=== PATIENT | female | born 1960 | race Caucasian/White ===

== ENCOUNTER 2017-07-07 08:21 | Emergency (ER) | payer OTHER ==
[~2017-07-07] VITALS: Ht 160 cm; Wt 80.0 kg
[~2017-07-07 08:21] MED LIST: ACET325T45 GTB; CEPH-443 PO; CHOL100062 GTB; DEXT1CAP GTB; DONE10TA7 GTB; GLUC1KIT3 IM; IBUP-1542 PO; LEVE-5 GTB; MULT-5 GTB; OLAN2.5T4 GTB; TRAZ50TA18 GTB
[2017-07-07 08:40] VITALS: Ht 160 cm; Wt 80.0 kg
[2017-07-07] MEDS ORDERED: SOD CHLORIDE 0.9% 1,000 ML IV ONE ×2 (09:00→11:00)
[2017-07-07] MEDS ORDERED: CEFTRIAXONE 1 GM/50 ML (PMX) 50 ML IVPB ONE (09:00)
[2017-07-07 09:32] LABS: BASOPHIL # 0.1 10^3/ul (0.0-0.1); BASOPHILS % 0.4 % (0.0-2.0); EOSINOPHILS # 0.3 10^3/ul (0.0-0.5); EOSINOPHILS % 2.7 % (0.0-7.0); HEMATOCRIT 44.9 % (37.0-47.0); HEMOGLOBIN 14.9 g/dl (12.0-16.0); LYMPHOCYTES # 3.2 10^3/ul (0.8-2.9); LYMPHOCYTES % 25.4 % (15.0-51.0); MEAN CORPUSCULAR HEMOGLOBIN 30.3 pg (29.0-33.0); MEAN CORPUSCULAR HGB CONC 33.2 g/dl (32.0-37.0); MEAN CORPUSCULAR VOLUME 91.4 fl (82.0-101.0); MEAN PLATELET VOLUME 11.8 fl (7.4-10.4); MONOCYTE # 0.9 10^3/ul (0.3-0.9); MONOCYTES % 7.1 % (0.0-11.0); NEUTROPHILS % 63.7 % (39.0-77.0); PLATELET COUNT 265 10^3/UL (140-415); RED BLOOD COUNT 4.91 10^6/ul (4.20-5.40); RED CELL DISTRIBUTION WIDTH 13.8 % (11.5-14.5); WHITE BLOOD COUNT 12.5 10^3/ul (4.8-10.8)
[2017-07-07 09:54] LABS: ALANINE AMINOTRANSFERASE 56 IU/L (13-69); ALBUMIN 4.4 g/dl (3.3-4.9); ALBUMIN/GLOBULIN RATIO 1.02; ALKALINE PHOSPHATASE 222 IU/L (42-121); ANION GAP 16 (8-16); ASPARTATE AMINO TRANSFERASE 55 IU/L (15-46); BILIRUBIN,INDIRECT 0.7 mg/dl (0-1.1); BILIRUBIN,TOTAL 0.7 mg/dl (0.2-1.3); BLOOD UREA NITROGEN 14 mg/dl (7-20); CARBON DIOXIDE 25 mmol/L (21-31); CHLORIDE 106 mmol/L (97-110); CREATININE 0.59 mg/dl (0.44-1.00); GLUCOSE 170 mg/dl (70-220); SODIUM 142 mmol/L (135-144); TOTAL PROTEIN 8.7 g/dl (6.1-8.1)
[2017-07-07 10:05] LABS: TROPONIN-I < 0.012 ng/ml (0.00-0.12)
[2017-07-07] MEDS ORDERED: DONE10TA7 GTB (10:06)
[2017-07-07 10:07] LABS: ADD UMIC YES; UR ASCORBIC ACID 40 mg/dL (NEGATIVE); UR BILIRUBIN (Dip) NEGATIVE (NEGATIVE); UR BLOOD (Dip) NEGATIVE (NEGATIVE); UR CLARITY CLOUDY (CLEAR); UR COLOR AMBER (YELLOW); UR GLUCOSE (Dip) 1+ mg/dL (NEGATIVE); UR KETONES (Dip) TRACE mg/dL (NEGATIVE); UR LEUKOCYTE ESTERASE (Dip) NEGATIVE Leu/ul (NEGATIVE); UR MUCUS MANY /HPF (NONE SEEN); UR NITRITE (Dip) NEGATIVE (NEGATIVE); UR RBC 22 /HPF (0-5); UR SPECIFIC GRAVITY (Dip) 1.031 (1.003-1.030); UR TOTAL PROTEIN (Dip) 2+ mg/dl (NEGATIVE); UR UROBILINOGEN (Dip) 2+ mg/dL (NEGATIVE)
[2017-07-07] MEDS ORDERED: DOCU-159 GTB (10:09)
[2017-07-07] MEDS ORDERED: BASAGLAR SUBCUTANE (10:09)
[2017-07-07] MEDS ORDERED: ONDA4TAB95 GTB (10:11)
[2017-07-07] MEDS ORDERED: IPRA3AMP INHALATION (10:11)
--- NOTE | 2017-07-07 10:36 | RADRPT ---
PROCEDURE: XR Chest. CLINICAL INDICATION: chest pain TECHNIQUE: Single frontal view of the chest was obtained COMPARISON: 02/02/2016 FINDINGS: The heart and mediastinum are within normal limits. The lungs are clear. There is no pleural effusion or pneumothorax. RPTAT: AA IMPRESSION: No acute disease. .Felix Velázquez MD, MD Date Time Electronically viewed and signed by .Felix Velázquez MD, on 07/07/2017 10:36 .S/
--- NOTE | 2017-07-07 10:57 | ERD ---
ER Documentation Chief Complaint Date/Time DATE: 07/07/17 TIME: 10:44 Chief Complaint G-TUBE REPLACEMENT 20FR. HPI 57-year-old woman [facility] for gastrostomy tube replacement. Patient is currently using antibiotics for mild abdominal wall cellulitis. She has had no fevers or chills, no vomiting, no diarrhea, no respiratory difficulty. HPI supplemented by reviewing [facility] records, speaking to EMS, reviewing past medical history, and speaking to nursing staff. ROS All systems reviewed and are negative except as per history of present illness. Medications Home Meds Reported Medications Ipratropium-Albuterol (Ipratropium-Albuterol) 0.5-3 Mg/3 Ml Ampul.neb, 3 ML INHALATION Q6, #30 VIAL 07/07/17 Ondansetron Hcl* (Ondansetron Hcl*) 4 Mg Tablet, 4 MG GTB Q4H Y for NAUSEA AND OR VOMITING, TAB 07/07/17 [Basaglar] No Conflict Check, 20 UNITS SUBCUTANE QHS 07/07/17 Docusate Sodium* (Docusate Sodium*) 100 Mg Capsule, 100 MG GTB BID, #60 CAP 07/07/17 Donepezil* (Donepezil*) 10 Mg Tablet, 10 MG GTB QHS, #30 TAB 07/07/17 Acetaminophen* (Acetaminophen*) 325 Mg Tablet, 650 MG GTB Q4H Y for PAIN, TAB 08/24/15 Levetiracetam* (Keppra*) 500 Mg Tablet, 500 MG GTB BID, TAB 08/24/15 Multivit With Calcium,Iron,Min (TAB A VJ) 1 Each Tablet, 1 EACH GTB DAILY 05/16/14 Discontinued Reported Medications Trazodone Hcl* (Trazodone Hcl*) 50 Mg Tablet, 25 MG GTB HS, TAB 08/24/15 Olanzapine* (Zyprexa*) 2.5 Mg Tablet, 2.5 MG GTB DAILY, TAB 08/24/15 Glucagon,Human Recombinant (Glucagon Emergency Kit) 1 Mg/Kit Kit, 1 MG IM PRN, KIT 08/24/15 Dextromethorphan Hbr/Quinidine (NUEDEXTA 20-10 MG CAPSULE) 1 Each Capsule, 1 EACH GTB BID 05/16/14 Cholecalciferol* (Vitamin D3*) 1,000 Unit Tablet, 1000 UNIT GTB DAILY, TAB 05/16/14 Donepezil* (Aricept*) 10 Mg Tablet, 10 MG GTB DAILY 05/16/14 Discontinued Scripts Ibuprofen* (Motrin*) 600 Mg Tab, 600 MG PO TID for FEVER, #30 TAB Prov:RAMILA KINNEY MD 02/02/16 Cephalexin* (Keflex*) 500 Mg Capsule, 500 MG PO QID for 5 Days, CAP Prov:RAMILA KINNEY MD 02/02/16 Allergies Allergies: Coded Allergies: No Known Allergies (Verified Allergy, Mild, 07/07/17) PMhx/Soc Previous stroke with resulting chronic encephalopathy, diabetes mellitus, hypertension, peptic ulcer disease, chronic renal insufficiency, dementia, psychiatric illness, dysphagia with PEG tube placement, bedbound state History of Surgery: Yes (G-TUBE PLACEMENT) Anesthesia Reaction: No Hx Neurological Disorder: Yes (CVA) Hx Respiratory Disorders: No Hx Cardiac Disorders: No Hx Psychiatric Problems: Yes Hx Miscellaneous Medical Probl: No Hx Alcohol Use: No Hx Substance Use: No Hx Tobacco Use: No Smoking Status: Never smoker FmHx Family History: No diabetes Physical Exam Vitals Vital Signs Date Time Temp Pulse Resp B/P Pulse Ox O2 Delivery O2 Flow Rate FiO2 07/07/17 12:49 60 18 124/72 100 Room Air 07/07/17 10:09 Nasal Cannula 4 07/07/17 10:00 62 18 118/74 100 Room Air 07/07/17 08:40 97.8 72 20 123/87 94 Physical Exam GENERAL: Elderly, chronically debilitated woman, afebrile HEENT: Dry mucous membranes, pink conjunctiva, cervical spine without deformity NEURO: Eyes open, pupils equal round reactive to light, nonverbal, no facial asymmetry, no focal deficits, bilateral lower extremity contractures CARDIAC: Regular rate and rhythm, no murmurs rubs or gallops LUNGS: Clear bilaterally no wheezing crackles or stridor ABDOMEN: Soft nontender, no guarding, no rigidity, no rebound, no psoas sign no obturator sign. SKIN: Warm erythema to the skin around the gastrostomy site concerning for superficial cellulitis, no pustules or vesicles, no purulent discharge from the gastrostomy site. EXTREMITIES: Diffuse muscular wasting, calves bilaterally symmetrical, distal pulses equal PSYCH: Unable to assess Result Diagram: 07/07/17 0907/07/17 0900 Results 24 hrs Laboratory Tests Test 07/07/17 09:00 07/07/17 09:34 07/07/17 11:35 White Blood Count 12.510^3/ul Red Blood Count 4.9110^6/ul Hemoglobin 14.9g/dl Hematocrit 44.9% Mean Corpuscular Volume 91.4fl Mean Corpuscular Hemoglobin 30.3pg Mean Corpuscular Hemoglobin Concent 33.2g/dl Red Cell Distribution Width 13.8% Platelet Count 26968^3/UL Mean Platelet Volume 11.8fl Neutrophils % 63.7% Lymphocytes % 25.4% Monocytes % 7.1% Eosinophils % 2.7% Basophils % 0.4% Nucleated Red Blood Cells % 0.0/100WBC Neutrophils # (Manual) 7.910^3/ul Lymphocytes # 3.210^3/ul Monocytes # 0.910^3/ul Eosinophils # 0.310^3/ul Basophils # 0.110^3/ul Nucleated Red Blood Cells # 0.010^3/ul Sodium Level 142mmol/L Potassium Level 5.0mmol/L Chloride Level 106mmol/L Carbon Dioxide Level 25mmol/L Anion Gap 16 Blood Urea Nitrogen 14mg/dl Creatinine 0.59mg/dl Glucose Level 170mg/dl Lactic Acid Level 3.2mmol/L 1.5mmol/L Calcium Level 10.0mg/dl Total Bilirubin 0.7mg/dl Direct Bilirubin 0.00mg/dl Indirect Bilirubin 0.7mg/dl Aspartate Amino Transf (AST/SGOT) 55IU/L Alanine Aminotransferase (ALT/SGPT) 56IU/L Alkaline Phosphatase 222IU/L Troponin I < 0.012ng/ml Total Protein 8.7g/dl Albumin 4.4g/dl Globulin 4.30g/dl Albumin/Globulin Ratio 1.02 Lipase 273U/L Urine Color ALFONZO Urine Clarity CLOUDY Urine pH 5.0 Urine Specific [place] 1.031 Urine Ketones TRACEmg/dL Urine Nitrite NEGATIVEmg/dL Urine Bilirubin NEGATIVEmg/dL Urine Urobilinogen 2+mg/dL Urine Leukocyte Esterase NEGATIVELeu/ul Urine Microscopic RBC 22/HPF Urine Microscopic WBC 3/HPF Urine Mucus MANY/HPF Urine Hemoglobin NEGATIVEmg/dL Urine Glucose 1+mg/dL Urine Total Protein 2+mg/dl Current Medications Medications (Trade) Dose Ordered Sig/Deric Route PRN Reason Start Time Stop Time Status Last Admin Dose Admin Ceftriaxone Sodium 50 ml @ 100 mls/hr ONCE ONCE IVPB 07/07/17 09:00 07/07/17 09:29 DC 07/07/17 09:25 Sodium Chloride 1,000 ml @ 1,000 mls/hr Q1H ONCE IV 07/07/17 09:00 07/07/17 09:59 DC 07/07/17 09:25 Sodium Chloride (NS) 1,000 ml @ 1,000 mls/hr Q1H ONCE IV 07/07/17 11:00 07/07/17 11:59 DC 07/07/17 10:58 Diatrizoate Meglum/ Diatrizoate Sod (Gastrografin 66-10 Solution) 120 ml STK-MED ONCE .ROUTE 07/07/17 11:02 07/07/17 11:03 DC Diatrizoate Meglum/ Diatrizoate Sod (Gastrografin 66-10 Solution) 120 ml STK-MED ONCE .ROUTE 07/07/17 12:29 07/07/17 12:30 DC Procedures/MDM Gastrostomy tube was replaced by me using sterile technique, A 22 Surinamese G-tube was insufflated with 10 cc of normal saline, it was secured in place by applying gentle traction outward so the balloon lodged into the opening, position verified with auscultation. Patient tolerated procedure well. I administered 2 L normal saline intravenously for dehydration. EKG performed, read by me: 77 bpm, normal sinus rhythm, normal axis, no acute ST segment changes, narrow QRS complex, with good R-wave progression in precordial leads. One view abdominal x-ray was performed using Gastrografin through the replaced gastrostomy tube, there was no leaking of dye, good position of the tube, no concerning air-fluid levels. X-ray read by me. CBC and electrolytes were unremarkable, liver function tests normal, troponin negative, urine analysis negative for infection.Lactic acid elevated at 3.2, Repeat lactic acid level after IV fluids was down to 1.5. I also administered ceftriaxone 1 g IV for cellulitis, the patient will continue oral antibiotics. I spoke to the patient's PMD regarding the patient's presentation and symptomatology he recommended outpatient management if the gastrostomy tube was replaced and the lactic acid level falls after IV hydration, as we both do not suspect sepsis. Departure Diagnosis: Primary Impression: Gastrostomy tube dysfunction Additional Impressions: Abdominal wall cellulitis Dehydration Condition: Good Patient Instructions: Dehydration, Cellulitis, Caring for Your Gastrostomy Tube (G-Tube) RAMILA KINNEY MD Jul 07, 2017 10:55
[2017-07-07] MEDS ORDERED: DIATR MEGLU/DIATRIZOATE SODIUM 120 ML BTL ONE ×2 (11:02→12:29)
--- NOTE | 2017-07-07 11:32 | RADRPT ---
PROCEDURE: XR Abdomen. CLINICAL INDICATION: Gastrostomy tube position evaluation. TECHNIQUE: AP supine abdomen x-ray. The image was obtained following injection of 40 ml of Gastrog rafin into the gastrostomy tube. COMPARISON: 03/23/2016. FINDINGS: The bowel gas pattern is normal with no evidence of obstruction. Contrast is present within the gastrostomy tube and the stomach. Surgical clips are present in the r ight upper quadrant of the at. There are no abnormal calcifications overlying the urinary tracts. There are mild degenerative changes of the spine. The upper abdomen is not completely included on th e image. IMPRESSION: 1. The gastrostomy tube is in the stomach. RPTAT: QQ .Adonay Huang MD, MD Date Time Electronically viewed and signed by .Adonay Huang MD, on 07/07/2017 11:32 .R/
--- NOTE | 2017-07-07 13:23 | RADRPT ---
PROCEDURE: XR Abdomen. CLINICAL INDICATION: G tube placement. TECHNIQUE: Single frontal view of the abdomen following injection of 40 cc gastrographin through t he gastrostomy tube is available for review. Fluoroscopic time: 0 Number of images/sequences: 1 COMPARISON: 11:15 a.m. FINDINGS: The bowel gas pattern is normal. There is no evidence of obstruction. There are no abnormal calcific ations overlying the urinary tracts. The osseous structures are unremarkable. There is a percutaneou s gastrostomy tube in place with tip in the lumen of the stomach. There is no evidence of injected contrast extravasation or leakage. IMPRESSION: 1. Percutaneous gastrostomy tube in place with tip in the stomach and no evidence of contrast extra vasation or leakage.. RPTAT: HJPL .Prasad Block MD, Date Time Electronically viewed and signed by .Prasad Block MD, on 07/07/2017 13:23 .L/
[2017-07-07 14:55] VITALS: BP 126/85; PULSE 64; RESP 17; TEMP 98.7
== END 2017-07-07 15:14 | disposition home or self-care (01) ==
LOC: E/R 08:21
DX: K94.23 Gastrostomy malfunction (principal); L03.311 Cellulitis of abdominal wall; E86.0 Dehydration; E11.22 Type 2 diabetes mellitus with diabetic chronic kidney disease; I12.9 Hypertensive chronic kidney disease with stage 1 through stage 4 chronic kidney disease, or unspecified chronic kidney disease; N18.9 Chronic kidney disease, unspecified
CPT/HCPCS: 36415; 43760; 49465; 71010; 74000; 80053; 81001; 83605; 83690; 84484; 85025; 87040; 87086; 93005; 96374; J0696; J7030; Z7502; Z7610

== ENCOUNTER 2017-07-08 11:04 | Emergency (ER) | payer OTHER ==
[~2017-07-08] VITALS: Ht 170.2 cm; Wt 80.0 kg
[2017-07-08 11:04] VITALS: Ht 170.2 cm; Wt 80.0 kg
[~2017-07-08 11:04] MED LIST changes: +BASAGLAR SUBCUTANE; -CEPH-443 PO; -CHOL100062 GTB; -DEXT1CAP GTB; +DOCU-159 GTB; -GLUC1KIT3 IM; -IBUP-1542 PO; +IPRA3AMP INHALATION; -OLAN2.5T4 GTB; +ONDA4TAB95 GTB; -TRAZ50TA18 GTB
--- NOTE | 2017-07-08 14:53 | ERA ---
ER Documentation Chief Complaint Date/Time DATE: 07/08/17 TIME: 14:48 Chief Complaint SENT FROM [facility] FOR DISLODGED GTUBE. PT WAS SEEN IN ED FOR SAME YESTERDAY. HPI Patient is a 57-year-old female sent from a senior care for dislodged G-tube. She was in the ER yesterday for the same reason, and was found to have mild abdominal wall cellulitis and dehydration. She was given IV fluids and started on antibiotics. Her G-tube was replaced with a 22 Greek G-tube after discussion with Dr. Costa, due to note being made of a large orifice. When the G-tube dislodged today, was replaced with a Granger catheter. There is no other report of acute medical condition and the patient is nonverbal which limits history. ROS All systems reviewed and are negative except as per history of present illness. Medications Home Meds Reported Medications Ipratropium-Albuterol (Ipratropium-Albuterol) 0.5-3 Mg/3 Ml Ampul.neb, 3 ML INHALATION Q6, #30 VIAL 07/07/17 Ondansetron Hcl* (Ondansetron Hcl*) 4 Mg Tablet, 4 MG GTB Q4H Y for NAUSEA AND OR VOMITING, TAB 07/07/17 [Basaglar] No Conflict Check, 20 UNITS SUBCUTANE QHS 07/07/17 Docusate Sodium* (Docusate Sodium*) 100 Mg Capsule, 100 MG GTB BID, #60 CAP 07/07/17 Donepezil* (Donepezil*) 10 Mg Tablet, 10 MG GTB QHS, #30 TAB 07/07/17 Acetaminophen* (Acetaminophen*) 325 Mg Tablet, 650 MG GTB Q4H Y for PAIN, TAB 08/24/15 Levetiracetam* (Keppra*) 500 Mg Tablet, 500 MG GTB BID, TAB 08/24/15 Multivit With Calcium,Iron,Min (TAB A VJ) 1 Each Tablet, 1 EACH GTB DAILY 05/16/14 Discontinued Reported Medications Trazodone Hcl* (Trazodone Hcl*) 50 Mg Tablet, 25 MG GTB HS, TAB 08/24/15 Olanzapine* (Zyprexa*) 2.5 Mg Tablet, 2.5 MG GTB DAILY, TAB 08/24/15 Glucagon,Human Recombinant (Glucagon Emergency Kit) 1 Mg/Kit Kit, 1 MG IM PRN, KIT 08/24/15 Dextromethorphan Hbr/Quinidine (NUEDEXTA 20-10 MG CAPSULE) 1 Each Capsule, 1 EACH GTB BID 05/16/14 Cholecalciferol* (Vitamin D3*) 1,000 Unit Tablet, 1000 UNIT GTB DAILY, TAB 05/16/14 Donepezil* (Aricept*) 10 Mg Tablet, 10 MG GTB DAILY 05/16/14 Discontinued Scripts Ibuprofen* (Motrin*) 600 Mg Tab, 600 MG PO TID for FEVER, #30 TAB Prov:RAMILA KINNEY MD 02/02/16 Cephalexin* (Keflex*) 500 Mg Capsule, 500 MG PO QID for 5 Days, CAP Prov:RAMILA KINNEY MD 02/02/16 Allergies Allergies: Coded Allergies: No Known Allergies (Verified Allergy, Mild, 07/07/17) PMhx/Soc Past medical history: Stroke, diabetes mellitus Past surgical history: G-tube Social history: Lives in senior care History of Surgery: Yes (G-TUBE PLACEMENT) Anesthesia Reaction: No Hx Neurological Disorder: Yes (CVA) Hx Respiratory Disorders: No Hx Cardiac Disorders: No Hx Psychiatric Problems: Yes Hx Miscellaneous Medical Probl: No Hx Alcohol Use: No Hx Substance Use: No Hx Tobacco Use: No Smoking Status: Unknown if ever smoked FmHx Cannot obtain Physical Exam Vitals Vital Signs Date Time Temp Pulse Resp B/P Pulse Ox O2 Delivery O2 Flow Rate FiO2 07/08/17 11:04 97.3 65 18 115/91 100 Physical Exam Const: Alert, nonverbal, no acute distress, Makes eye contact Head: Atraumatic Eyes: Normal Conjunctiva, No pallor, no icterus ENT: Normal External Ears, Nose and Mouth. Mucous membranes moist Neck: Full range of motion..~ No meningismus. Resp: Clear to auscultation bilaterally, No wheezes, no rales Cardio: Regular rate and rhythm, no murmurs Abd: Soft, non tender, non distended. Left upper quadrant G-tube with Granger catheter through G-tube orifice. Minimal to mild surrounding cellulitis erythema Skin: No petechiae or rashes Back: No midline or flank tenderness Ext: No cyanosis, or edema Neur: Awake and alert Psych: Normal Mood and Affect Procedures/MDM MDM: Patient is a 57-year-old female with G-tube status post stroke who is sent from senior care for a dislodged G-tube. The G-tube was dislodged 2 days in a row. A larger G-tube was placed yesterday to prevent this complication due to a large G-tube tract, but this was not adequate. I spoke with Dr. Costa, and he advises admitting the patient for further GI workup and likely need placement of a new G-tube through a new tract. Due to insurance, the patient will be transferred to [facility]. The patient was accepted for transfer by Dr. Maurer, with whom I spoke. There is no other evidence of acute medical condition. Departure Diagnosis: Primary Impression: Encounter for feeding tube placement Condition: MARGARITO Lopez MD Jul 08, 2017 14:53
[2017-07-08 19:19] VITALS: BP 115/91; PULSE 89; RESP 18; TEMP 97.3
== END 2017-07-08 19:20 | disposition home or self-care (01) ==
LOC: E/R 11:04
DX: Z43.1 Encounter for attention to gastrostomy (principal); E11.9 Type 2 diabetes mellitus without complications
CPT/HCPCS: 99282

== ENCOUNTER 2017-08-03 00:41 | Emergency (ER) | payer OTHER ==
[~2017-08-03] VITALS: Ht 154.9 cm; Wt 67.3 kg
[2017-08-03 00:52] VITALS: Ht 154.9 cm; Wt 67.3 kg
[2017-08-03] MEDS ORDERED: PIPER-TAZO 3.375 GM IV (PMX) 100 ML IVPB STA (01:25)
[2017-08-03 02:15] LABS: BASOPHIL # 0.1 10^3/ul (0.0-0.1); BASOPHILS % 0.4 % (0.0-2.0); EOSINOPHILS # 0.3 10^3/ul (0.0-0.5); EOSINOPHILS % 2.2 % (0.0-7.0); HEMOGLOBIN 13.3 g/dl (12.0-16.0); LYMPHOCYTES # 1.5 10^3/ul (0.8-2.9); LYMPHOCYTES % 12.6 % (15.0-51.0); MEAN CORPUSCULAR HEMOGLOBIN 29.2 pg (29.0-33.0); MEAN CORPUSCULAR HGB CONC 32.4 g/dl (32.0-37.0); MEAN CORPUSCULAR VOLUME 90.1 fl (82.0-101.0); MEAN PLATELET VOLUME 11.8 fl (7.4-10.4); MONOCYTE # 0.9 10^3/ul (0.3-0.9); MONOCYTES % 7.7 % (0.0-11.0); NEUTROPHIL # 8.8 10^3/ul (1.6-7.5); NEUTROPHILS % 76.8 % (39.0-77.0); PLATELET COUNT 244 10^3/UL (140-415); RED BLOOD COUNT 4.55 10^6/ul (4.20-5.40); RED CELL DISTRIBUTION WIDTH 14.1 % (11.5-14.5); WHITE BLOOD COUNT 11.5 10^3/ul (4.8-10.8)
[2017-08-03 03:13] LABS: ALBUMIN/GLOBULIN RATIO 1.02; BILIRUBIN,INDIRECT 0.5 mg/dl (0-1.1); BILIRUBIN,TOTAL 0.5 mg/dl (0.2-1.3); CALCIUM 9.5 mg/dl (8.4-10.2); CREATININE 0.58 mg/dl (0.44-1.00); POTASSIUM 4.2 mmol/L (3.5-5.1); TOTAL PROTEIN 7.9 g/dl (6.1-8.1)
--- NOTE | 2017-08-03 05:32 | ERA ---
ER Documentation Chief Complaint Date/Time DATE: 08/03/17 TIME: 05:31 Chief Complaint From [facility],leaking Gtube,swelling stoma HPI 57-year-old female sent from [facility] for leaking G-tube. History is per EMS run sheet detention transfer sheet secondary to be patient's baseline mental status. ROS All systems reviewed and are negative except as per history of present illness. Medications Home Meds Reported Medications Ipratropium-Albuterol (Ipratropium-Albuterol) 0.5-3 Mg/3 Ml Ampul.neb, 3 ML INHALATION Q6, #30 VIAL 07/07/17 Ondansetron Hcl* (Ondansetron Hcl*) 4 Mg Tablet, 4 MG GTB Q4H Y for NAUSEA AND OR VOMITING, TAB 07/07/17 [Basaglar] No Conflict Check, 20 UNITS SUBCUTANE QHS 07/07/17 Docusate Sodium* (Docusate Sodium*) 100 Mg Capsule, 100 MG GTB BID, #60 CAP 07/07/17 Donepezil* (Donepezil*) 10 Mg Tablet, 10 MG GTB QHS, #30 TAB 07/07/17 Acetaminophen* (Acetaminophen*) 325 Mg Tablet, 650 MG GTB Q4H Y for PAIN, TAB 08/24/15 Levetiracetam* (Keppra*) 500 Mg Tablet, 500 MG GTB BID, TAB 08/24/15 Multivit With Calcium,Iron,Min (TAB A VJ) 1 Each Tablet, 1 EACH GTB DAILY 05/16/14 Allergies Allergies: Coded Allergies: No Known Allergies (Verified Allergy, Mild, 07/07/17) PMhx/Soc History of Surgery: Yes (G-TUBE PLACEMENT) Anesthesia Reaction: No Hx Neurological Disorder: Yes (CVA) Hx Respiratory Disorders: No Hx Cardiac Disorders: No Hx Psychiatric Problems: Yes Hx Miscellaneous Medical Probl: No Hx Alcohol Use: No Hx Substance Use: No Hx Tobacco Use: No Smoking Status: Never smoker Physical Exam Vitals Vital Signs Date Time Temp Pulse Resp B/P Pulse Ox O2 Delivery O2 Flow Rate FiO2 08/03/17 00:52 97.1 85 18 126/60 97 Physical Exam Const: [] Head: Atraumatic Eyes: Normal Conjunctiva ENT: Normal External Ears, Nose and Mouth. Neck: Full range of motion..~ No meningismus. Resp: Clear to auscultation bilaterally Cardio: Regular rate and rhythm, no murmurs Abd: Soft, non tender, non distended. Normal bowel sounds Skin: G-tube site with erythema induration and focal swelling noted. Back: No midline or flank tenderness Ext: No cyanosis, or edema Neur: Awake and alert Psych: Deferred Result Diagram: 08/03/17 01508/03/17 0150 Results 24 hrs Laboratory Tests Test 08/03/17 01:50 White Blood Count 11.510^3/ul Red Blood Count 4.5510^6/ul Hemoglobin 13.3g/dl Hematocrit 41.0% Mean Corpuscular Volume 90.1fl Mean Corpuscular Hemoglobin 29.2pg Mean Corpuscular Hemoglobin Concent 32.4g/dl Red Cell Distribution Width 14.1% Platelet Count 71334^3/UL Mean Platelet Volume 11.8fl Neutrophils % 76.8% Lymphocytes % 12.6% Monocytes % 7.7% Eosinophils % 2.2% Basophils % 0.4% Nucleated Red Blood Cells % 0.0/100WBC Neutrophils # 8.810^3/ul Lymphocytes # 1.510^3/ul Monocytes # 0.910^3/ul Eosinophils # 0.310^3/ul Basophils # 0.110^3/ul Nucleated Red Blood Cells # 0.010^3/ul Sodium Level 143mmol/L Potassium Level 4.2mmol/L Chloride Level 106mmol/L Carbon Dioxide Level 28mmol/L Anion Gap 13 Blood Urea Nitrogen 18mg/dl Creatinine 0.58mg/dl Glucose Level 145mg/dl Calcium Level 9.5mg/dl Total Bilirubin 0.5mg/dl Direct Bilirubin 0.00mg/dl Indirect Bilirubin 0.5mg/dl Aspartate Amino Transf (AST/SGOT) 24IU/L Alanine Aminotransferase (ALT/SGPT) 36IU/L Alkaline Phosphatase 158IU/L Total Protein 7.9g/dl Albumin 4.0g/dl Globulin 3.90g/dl Albumin/Globulin Ratio 1.02 Lipase 70U/L Current Medications Medications (Trade) Dose Ordered Sig/Deric Route PRN Reason Start Time Stop Time Status Last Admin Dose Admin Piperacillin Sod/ Tazobactam Sod (Zosyn 3.375gm/ 100 ml (Pmx)) 100 ml @ 200 mls/hr ONCE STAT IVPB 08/03/17 01:25 08/03/17 01:54 DC Procedures/MDM Decision-makin with obvious infection at G-tube site. Patient is capitated to another hospital will be transferred there pending bed assignment. Started on broad-spectrum antibiotics post blood cultures. Departure Diagnosis: Primary Impression: Gastrostomy infection Condition: Stable NOY MAGALLANES Aug 03, 2017 05:32
[2017-08-03] MEDS ORDERED: CLOP75TA27 GTB (06:35)
[2017-08-03] MEDS ORDERED: AMIN30LI PO (06:35)
[2017-08-03] MEDS ORDERED: MULT-105 GTB (06:35)
[2017-08-03] MEDS ORDERED: DONE10TA7 PO (06:41)
[2017-08-03] MEDS ORDERED: IPRA3AMP INHALATION (06:50)
[2017-08-03 08:58] VITALS: BP 117/85; PULSE 88; RESP 18; TEMP 97.1
== END 2017-08-03 10:13 ==
LOC: E/R 00:41
DX: K94.22 Gastrostomy infection (principal)
CPT/HCPCS: 36415; 80053; 82962; 83690; 85025; 87040; J2543; Z7502; 99283

== ENCOUNTER 2017-10-23 04:26 | Inpatient (IN) | END 2017-11-03 17:10 | DRG 871 ==

== ENCOUNTER 2018-03-12 23:29 | Emergency (ER) | END 2018-03-13 04:08 | disposition home or self-care (01) ==